=== PATIENT | male | born 1975 | race African-American/Black ===

== ENCOUNTER 2025-09-07 02:34 | Emergency (ER) | payer OTHER, MEDICAID ==
[~2025-09-07] VITALS: Ht 165.1 cm; Wt 73.0 kg
[2025-09-07 02:43] VITALS: O2SAT 98
[2025-09-07 05:40] VITALS: BP 118/87; PULSE 82; RESP 20; TEMP 36.8; O2SAT 99
== END 2025-09-07 05:49 | disposition home or self-care (01) ==
LOC: ER 02:47
DX: S01.81XA Laceration without foreign body of other part of head, initial encounter (principal); V98.8XXA Other specified transport accidents, initial encounter; Y93.89 Activity, other specified; Y92.89 Other specified places as the place of occurrence of the external cause; Y99.8 Other external cause status
CPT/HCPCS: 12011; 99284